=== PATIENT | male | born 1965 | race Caucasian/White ===

== ENCOUNTER 2019-05-29 03:14 | Emergency (ER) | payer MEDICARE, OTHER ==
[~2019-05-29] VITALS: Ht 180.3 cm; Wt 75.0 kg
--- NOTE | 2019-05-29 03:41 | NUR ---
Patient is resting comfortably in bed in no distress. Patient has hoarse voice but is able to swallow. is at bedside as Dr. Mares discusses plan of care. Patient's states they have no insurance so registration is contacted to attempt to get patient signed up for emergency medical insurance.
[2019-05-29] MEDS ORDERED: dexamethasone 0.5 mg/5ml unit-dose oral solution PO STA (03:45)
[2019-05-29] MEDS ORDERED: clindamycin phosphate 150mg/ml inj. IM ONE (03:45)
[2019-05-29] MEDS ORDERED: CLIN-96 PO (03:47)
[2019-05-29] MEDS ORDERED: HYDR-3965 PO (03:47)
[2019-05-29] MEDS ORDERED: dexamethasone sod phosphate 10mg/ml inj PO STA (03:53)
[2019-05-29 04:05] VITALS: BP 147/76
== END 2019-05-29 04:07 | disposition home or self-care (01) ==
LOC: ER 03:15
DX: K12.2 Cellulitis and abscess of mouth (principal); J03.90 Acute tonsillitis, unspecified; Z79.899 Other long term (current) drug therapy
CPT/HCPCS: 96372; 99283; J1100; J3490; J8540